=== PATIENT | female | born 1975 | race Two or more races ===

== ENCOUNTER → 2024-09-12 | Outpatient (CLI) | payer MEDICAID, SELFPAY ==
--- NOTE | 2024-09-12 09:15 | XR_ITS ---
Examination: Screening digital mammography, bilateral Computer aided detection 3-D breast Tomosynthesis, bilateral Date and time of exam: September 12, 2024 1203 hours Compared to June 26, 2015 Indication: Screening, patient states left breast pain one month Technique: Nonmagnified MLO, CC views of the breasts to been obtained, reconstructed from 3-D Tomosynthesis images. R2 computer aided detection program utilized for evaluation of suspicious masses and/or abnormal calcifications. 3-D Tomosynthesis images obtained. Findings: The breasts are heterogeneously dense, which may obscure small masses Benign calcifications. No suspicious masses Impression: BI-RADS Category 0: Incomplete: Need additional imaging evaluation Given the patient's presentation, recommend bilateral breast sonography follow-up
== END | disposition home or self-care (01) ==
LOC: CDIM 08:53
DX: Z12.31 Encounter for screening mammogram for malignant neoplasm of breast (principal); R92.8 Other abnormal and inconclusive findings on diagnostic imaging of breast
CPT/HCPCS: 77063; 77067

== ENCOUNTER → 2024-10-06 | Outpatient (CLI) | payer MEDICAID, SELFPAY ==
--- NOTE | 2024-10-06 11:00 | XR_ITS ---
Examination: Breast ultrasound complete, bilateral Date and time of exam: October 06, 2024 1106 hours INDICATIONS: Left breast pain one month Technique: Real-time grayscale ultrasonographic imaging bilateral breasts, including all 4 quadrants as well as nipple retroareolar and axillary regions. Findings: Sonographic images right breast 1:00 cyst 7 x 3 mm No solid nodules Sonographic images left breast No cystic or solid mass IMPRESSION: BI-RADS Category 2: Benign findings
== END | disposition home or self-care (01) ==
LOC: CDIM 10:44
DX: N60.01 Solitary cyst of right breast (principal)
CPT/HCPCS: 76641

== ENCOUNTER → 2024-10-18 | Outpatient (CLI) | payer MEDICAID, SELFPAY ==
--- NOTE | 2024-10-18 10:30 | XR_ITS ---
Examination: Transvaginal ultrasound of the pelvis, complete Technique: Transvaginal sonographic images pelvis performed using bahena scale imaging Exam date and time: October 18, 2024 1015 hours INDICATIONS: Pelvic pain irregular menses 3 months FINDINGS: Uterus 10.0 cm multiple uterine fundal masses, the largest in the anterior fundus 2.8 cm Hyperechoic cervical mass 7 x 6 x 7 mm Posterior fundal mass 14 mm Endometrial stripe 13 mm Right ovary 2.4 cm arterial flow Left ovary 2.4 cm arterial flow IMPRESSION: Recommend MRI pelvis follow-up pre and postcontrast to confirm cervical mass 7 x 6 x 7 mm.
== END | disposition home or self-care (01) ==
DX: N92.6 Irregular menstruation, unspecified (principal); Z86.018 Personal history of other benign neoplasm
CPT/HCPCS: 76830